=== PATIENT | male | born 1975 | race Caucasian/White ===

== ENCOUNTER 2023-11-18 00:37 | Inpatient (IN) | payer MEDICAID ==
[2023-11-18] MEDS: Sodium Chloride 0.9% 10 ML Syringe FLUSH PRN (00:45)
[2023-11-18] MEDS: MVI, Adult with Vitamin K 10 ML, Folic Acid 1 MG, Thiamine 100 MG in Lactated Ringers 1... IV ONE (00:45)
[2023-11-18 00:55] LABS: BASOPHILS PERCENT AUTO 0.7 % (0.0-1.0); EOSINOPHILS PERCENT AUTO 0.7 % (1.0-3.0); HEMATOCRIT 36.5 % (40.0-54.0); LYMPHOCYTES PERCENT AUTO 8.1 % (20.5-50.1); MEAN CORPUSCULAR HEMOGLOBIN 35.3 pg (27.0-34.0); MEAN CORPUSCULAR HGB CONC 32.9 g/dL (33.0-35.0); MEAN CORPUSCULAR VOLUME 107.4 fL (80-100); MONOCYTES PERCENT AUTO 17.6 % (2-8); NEUTROPHILS PERCENT AUTO 72.9 % (42.2-75.2); PLATELET COUNT,PLT 183 10^3/uL (150-450); WHITE BLOOD CELL COUNT,WBC 7.1 10^3/uL (5.0-10.0)
[2023-11-18] MEDS: LORazepam 2 MG/ML SDV IVPUSH ONE (00:55)
[2023-11-18 01:18] LABS: ALANINE AMINOTRANSFERASE,ALT 96 U/L (16-63); ALBUMIN 3.1 g/dL (3.4-5.0); ALKALINE PHOSPHATASE 72 U/L (46-116); ANION GAP 17.2 mEq/L (7-13); ASPARTATE AMNIOTRANSFERASE,AST 84 U/L (15-37); BILIRUBIN TOTAL 1.8 mg/dL (0.2-1.0); BLOOD UREA NITROGEN,BUN 21 mg/dL (7-18); BUN/CREATININE RATIO 11.3 (No establ ref range); C-REACTIVE PROTEIN 4.74 ng/dL (<=0.50); CALCIUM 8.2 mg/dL (8.5-10.1); CARBON DIOXIDE,CO2 25 mmol/L (21-32); CHLORIDE,CL 108 mmol/L (98-107); CREATININE 1.86 mg/dL (0.70-1.30); EST CRCL DRUG DOSING (CG) 56.08 mL/min; GLUCOSE RANDOM 120 mg/dL (70-99); MAGNESIUM 1.8 mg/dL (1.8-2.4); POTASSIUM,K 3.2 mmol/L (3.5-5.1); PROTEIN TOTAL,TP 6.5 g/dL (6.4-8.2); SODIUM,NA 147 mmol/L (136-145)
[2023-11-18 01:19] LABS: A/G RATIO 0.91; ESTIMATED GFR 45 mL/min (>=60); ETHANOL BLOOD MEDICAL < 3 mg/dL (0)
[2023-11-18 01:26] LABS: INR 1.1 (0.9-1.2); PTT,PARTIAL THROMBOPLSTIN TIME 22.4 SEC (22.0-34.0)
[2023-11-18 01:56] LABS: APPEARANCE,URINE CLEAR (CLEAR); BILIRUBIN,URINE LARGE (NEGATIVE); COLOR,URINE AMBER (YELLOW); GLUCOSE,URINE NEGATIVE (NEGATIVE); KETONES,URINE 15 (NEGATIVE); LEUKOCYTE ESTERASE,URINE NEGATIVE (NEGATIVE); NITRITE,URINE POSITIVE (NEGATIVE); OCCULT BLOOD,URINE MODERATE (NEGATIVE); PH,URINE 5.5 (5.0-9.0); PROTEIN,URINE 100 (NEGATIVE); UROBILINOGEN,URINE >=8.0 mg/dL (0.2-1.0)
[2023-11-18 02:06] LABS: AMPHETAMINES,URINE NEGATIVE (NEGATIVE); BARBITURATES,URINE NEGATIVE (NEGATIVE); BENZODIAZEPINE,URINE POSITIVE (NEGATIVE); MDMA (ECSTASY), URINE NEGATIVE (NEGATIVE); METHADONE,URINE NEGATIVE (NEGATIVE); METHAMPHETAMINES,URINE NEGATIVE (NEGATIVE); OPIATES,URINE NEGATIVE (NEGATIVE); OXYCODONE,URINE NEGATIVE (NEGATIVE); PHENCYCLIDINE,URINE NEGATIVE (NEGATIVE); TCA,URINE NEGATIVE (NEGATIVE)
[2023-11-18 02:24] LABS: BACTERIA,URINE FEW /HPF (0-FEW/HPF); EPITHELIAL CELLS,URINE FEW /HPF (NOT SEEN); MUCUS,URINE FEW /LPF (NOT SEEN); WBC,URINE 0-5 /HPF (0-5/HPF)
[2023-11-18 02:25] LABS: AMORPHOUS SEDIMENT,URINE FEW /HPF (NOT SEEN); HYALINE CASTS,URINE FEW
[2023-11-18] MEDS: Diphtheria,Pertussis(Acell),Tetanus Vaccine 0.5 ML Syringe IM ONE (02:49)
[2023-11-18] MEDS: Bacitracin Oint 1 GM U/D Packet TOP ONE (02:51)
[2023-11-18] MEDS: Lactated Ringers 1,000 ML IV SCH (03:13)
[2023-11-18] MEDS: cefTRIAXone 2 GM Vial IVPUSH ONE (03:16)
[2023-11-18] MEDS: Potassium Chloride 20 MEQ in Premix Bag 1 BAG IV ONE (03:16)
[2023-11-18] MEDS: Flumazenil 0.1 MG/ML 5 ML MDV IVPUSH ONE ×2 (05:32→06:04)
[2023-11-18] MEDS: Naloxone 2 MG/2 ML Syringe IVPUSH PRN (07:42)
[2023-11-18] MEDS: Sodium Chloride 0.9% 1,000 ML IV SCH ×2 (08:01→11:25)
[2023-11-18 08:14] LABS: BASE EXCESS ARTERIAL -1 mmol/L ((-2)-(+3)); BICARBONATE,ARTERIAL 27.2 mmol/L (22-26); O2 DELIVERY DEVICE OM; O2 SATURATION ARTERIAL 95 % (95-100); PH,ARTERIAL 7.23 (7.35-7.45); PO2 ARTERIAL 87 mmHg (70-100)
[2023-11-18 08:15] LABS: ALLEN TEST POSITIVE; PCO2 ARTERIAL 68 mmHg (35-45)
[2023-11-18 08:58] LABS: CORONAVIRUS COVID-19 NAA NEGATIVE (NEGATIVE); INFLUENZA A NAA NEGATIVE (NEGATIVE); INFLUENZA B NAA NEGATIVE (NEGATIVE); RESPIRATORY SYNCYTIAL VIR NAA NEGATIVE (NEGATIVE)
[2023-11-18] MEDS ORDERED: Metoprolol Tartrate 5 MG/5 ML SDV IVPUSH PRN (10:18)
[2023-11-18] MEDS ORDERED: Naloxone 2 MG/2 ML Syringe IVPUSH PRN (10:19)
[2023-11-18] MEDS ORDERED: Polyethylene Glycol 3350 Powder 17 GM Packet PO PRN (10:19)
[2023-11-18] MEDS ORDERED: Ondansetron 4 MG/2 ML SDV IVPUSH PRN (10:19)
[2023-11-18] MEDS ORDERED: Albuterol/Ipratropium 3.0-0.5 MG/3 ML Neb Soln NEB PRN (10:19)
[2023-11-18] MEDS ORDERED: Sennosides/Docusate Sodium 50-8.6 MG Tab PO PRN (10:19)
[2023-11-18] MEDS ORDERED: Magnesium Hydroxide 400 MG/5 ML Susp 30 ML Cup PO PRN (10:19)
[2023-11-18] MEDS ORDERED: Acetaminophen/oxyCODONE 325-5 MG Tab PO PRN (10:19)
[2023-11-18] MEDS ORDERED: LORazepam 2 MG/ML SDV IV PRN (10:35)
[2023-11-18] MEDS ORDERED: cloNIDine 0.1 MG Tab PO PRN (10:36)
[2023-11-18] MEDS ORDERED: Haloperidol Lactate 5 MG/ML SDV IM PRN (10:36)
[2023-11-18 11:04] LABS: HEMOGLOBIN A1C 5.3 % (<5.7)
[2023-11-18 17:40] LABS: ALBUMIN 2.6 g/dL (3.4-5.0); ANION GAP 12.8 mEq/L (7-13); BILIRUBIN TOTAL 1.3 mg/dL (0.2-1.0); BUN/CREATININE RATIO 14.6 (No establ ref range); CALCIUM 7.6 mg/dL (8.5-10.1); CREATININE 1.03 mg/dL (0.70-1.30); EST CRCL DRUG DOSING (CG) 101.28 mL/min; POTASSIUM,K 3.8 mmol/L (3.5-5.1); PROTEIN TOTAL,TP 5.9 g/dL (6.4-8.2)
[2023-11-18 17:44] LABS: A/G RATIO 0.79
[2023-11-18] MEDS: Modafinil 100 MG Tab PO ONE (18:20)
[2023-11-18] MEDS: Ondansetron 4 MG/2 ML SDV IVPUSH ONE (18:20)
[2023-11-18] MEDS: Pantoprazole 40 MG Vial IVPUSH ONE (18:20)
[2023-11-18] MEDS: Allopurinol 100 MG Tab PO SCH (20:53)
[2023-11-18] MEDS: HYDROmorphone 0.5 MG/0.5 ML Syringe IVPUSH PRN (20:57)
[2023-11-19] MEDS: Pantoprazole 40 MG Tab.CR PO SCH (03:54)
[2023-11-19] MEDS ORDERED: Pantoprazole 40 MG Tab.CR PO SCH (06:00)
[2023-11-19 06:50] LABS: BASOPHILS PERCENT AUTO 0.6 % (0.0-1.0); EOSINOPHILS PERCENT AUTO 2.3 % (1.0-3.0); HEMATOCRIT 31.2 % (40.0-54.0); LYMPHOCYTES PERCENT AUTO 13.3 % (20.5-50.1); MEAN CORPUSCULAR HEMOGLOBIN 35.6 pg (27.0-34.0); MEAN CORPUSCULAR HGB CONC 32.1 g/dL (33.0-35.0); MONOCYTES PERCENT AUTO 18.4 % (2-8); NEUTROPHILS PERCENT AUTO 65.4 % (42.2-75.2); PLATELET COUNT,PLT 159 10^3/uL (150-450); RED BLOOD CELL COUNT 2.81 10^6/uL (4.6-6.2); WHITE BLOOD CELL COUNT,WBC 4.7 10^3/uL (5.0-10.0)
[2023-11-19 06:58] LABS: ALBUMIN 2.4 g/dL (3.4-5.0); ANION GAP 12.6 mEq/L (7-13); BILIRUBIN TOTAL 1.5 mg/dL (0.2-1.0); BUN/CREATININE RATIO 16.5 (No establ ref range); CALCIUM 7.4 mg/dL (8.5-10.1); CREATININE 0.91 mg/dL (0.70-1.30); EST CRCL DRUG DOSING (CG) 114.63 mL/min; MAGNESIUM 1.9 mg/dL (1.8-2.4); POTASSIUM,K 3.6 mmol/L (3.5-5.1); PROTEIN TOTAL,TP 5.6 g/dL (6.4-8.2)
[2023-11-19 06:59] LABS: A/G RATIO 0.75
[2023-11-19] MEDS: Loratadine 10 MG Tab PO SCH (08:17)
[2023-11-19] MEDS: Modafinil 100 MG Tab PO SCH ×2 (08:17→12:04)
[2023-11-19] MEDS: Saccharomyces Boulardii (Probiotic) 250 MG Cap PO SCH (08:17)
[2023-11-19] MEDS: Levothyroxine 25 MCG Tab PO SCH (08:17)
[2023-11-19] MEDS: Folic Acid 1 MG Tab PO SCH (08:17)
[2023-11-19] MEDS: amLODIPine 5 MG Tab PO SCH (08:18)
[2023-11-19] MEDS: Multivitamin Tab PO SCH (08:18)
[2023-11-19] MEDS: Thiamine 100 MG Tab PO SCH (08:18)
[2023-11-19] MEDS: Citalopram 20 MG Tab PO SCH (08:18)
[2023-11-19] MEDS: cefTRIAXone 2 GM Vial IVPUSH SCH (08:21)
[2023-11-19] MEDS ORDERED: Folic Acid 1 MG Tab PO SCH (09:00)
[2023-11-19] MEDS: Acetaminophen/Butalbital/Caffeine 325-50-40 MG Tab PO PRN (09:48)
[2023-11-19] MEDS: Furosemide 40 MG/4 ML VIAL IVPUSH ONE (15:52)
[2023-11-20] MEDS ORDERED: Loperamide 2 MG Cap PO PRN (08:54)
[2023-11-20] MEDS ORDERED: Simethicone 80 MG Tab.Chew PO PRN (08:56)
[2023-11-21] MEDS: hydrALAZINE 20 MG/ML SDV IVPUSH PRN
[2023-11-22 06:21] LABS: BASOPHILS PERCENT AUTO 1.3 % (0.0-1.0); EOSINOPHILS PERCENT AUTO 2.4 % (1.0-3.0); HEMATOCRIT 32.8 % (40.0-54.0); HEMOGLOBIN 10.8 g/dL (14.0-18.0); LYMPHOCYTES PERCENT AUTO 21.8 % (20.5-50.1); MEAN CORPUSCULAR HGB CONC 32.9 g/dL (33.0-35.0); MEAN CORPUSCULAR VOLUME 106.1 fL (80-100); MONOCYTES PERCENT AUTO 14.9 % (2-8); NEUTROPHILS PERCENT AUTO 59.6 % (42.2-75.2); PLATELET COUNT,PLT 246 10^3/uL (150-450); RED BLOOD CELL COUNT 3.09 10^6/uL (4.6-6.2); WHITE BLOOD CELL COUNT,WBC 4.5 10^3/uL (5.0-10.0)
[2023-11-22 06:37] LABS: ALBUMIN 2.3 g/dL (3.4-5.0); ANION GAP 11.6 mEq/L (7-13); BILIRUBIN TOTAL 0.7 mg/dL (0.2-1.0); BUN/CREATININE RATIO 10.5 (No establ ref range); CALCIUM 7.9 mg/dL (8.5-10.1); CREATININE 0.95 mg/dL (0.70-1.30); EST CRCL DRUG DOSING (CG) 109.8 mL/min; MAGNESIUM 1.5 mg/dL (1.8-2.4); POTASSIUM,K 3.6 mmol/L (3.5-5.1)
[2023-11-22 06:38] LABS: A/G RATIO 0.62
[2023-11-22] MEDS: Magnesium Sulfate/Water 2 GM in Premix Bag 1 BAG IV ONE (09:26)
[2023-11-22] MEDS: Lisinopril 20 MG Tab PO ONE (11:56)
[2023-11-22] MEDS: Lisinopril 20 MG Tab PO SCH (20:05)
[2023-11-23] MEDS: Acetaminophen 325 MG Tab PO PRN (09:51)
[2023-11-23] MEDS: Polyethylene Glycol 3350 Powder 17 GM Packet PO SCH (12:00)
== END 2023-11-23 14:00 | disposition home or self-care (01) | DRG 189 ==
LOC: DL.ED 00:37 → DL.MS 09:24 → DL.ED 09:40 → OBSVTOIN 11-21 10:44
PROVIDERS: ADMIT Internal Medicine; ATTEND Internal Medicine
PROC: 5A09457 Assistance with Respiratory Ventilation, 24-96 Consecutive Hours, Continuous Positive Airway Pressure (ICD-10-PCS; principal; 2023-11-21)
PROC: 4A033R1 Measurement of Arterial Saturation, Peripheral, Percutaneous Approach (ICD-10-PCS; 2023-11-21)
PROC: 0HQ1XZZ Repair Face Skin, External Approach (ICD-10-PCS; 2023-11-21)
DX: J96.02 Acute respiratory failure with hypercapnia (principal); G92.8 Other toxic encephalopathy; S52.614A Nondisplaced fracture of right ulna styloid process, initial encounter for closed fracture; N39.0 Urinary tract infection, site not specified; L03.116 Cellulitis of left lower limb; Z68.41 Body mass index [BMI] 40.0-44.9, adult; Z59.00 Homelessness unspecified; E66.2 Morbid (severe) obesity with alveolar hypoventilation; E87.0 Hyperosmolality and hypernatremia; N17.9 Acute kidney failure, unspecified; K21.9 Gastro-esophageal reflux disease without esophagitis; M19.90 Unspecified osteoarthritis, unspecified site; M10.9 Gout, unspecified; F41.9 Anxiety disorder, unspecified; E03.9 Hypothyroidism, unspecified; E87.6 Hypokalemia; N18.9 Chronic kidney disease, unspecified; I12.9 Hypertensive chronic kidney disease with stage 1 through stage 4 chronic kidney disease, or unspecified chronic kidney disease; S01.91XA Laceration without foreign body of unspecified part of head, initial encounter; T50.905A Adverse effect of unspecified drugs, medicaments and biological substances, initial encounter; W19.XXXA Unspecified fall, initial encounter; D50.9 Iron deficiency anemia, unspecified; E87.8 Other disorders of electrolyte and fluid balance, not elsewhere classified; R73.9 Hyperglycemia, unspecified; D63.1 Anemia in chronic kidney disease; E80.6 Other disorders of bilirubin metabolism; R74.01 Elevation of levels of liver transaminase levels; E88.09 Other disorders of plasma-protein metabolism, not elsewhere classified; M79.89 Other specified soft tissue disorders; R19.7 Diarrhea, unspecified; Z88.0 Allergy status to penicillin; Z79.899 Other long term (current) drug therapy; Z98.890 Other specified postprocedural states; K70.10 Alcoholic hepatitis without ascites
CPT/HCPCS: 0241U; 12002; 36415; 36600; 51702; 70450; 72125; 73100-RT; 74018; 80053; 80305-QW; 80307; 81001; 82140; 82803; 82947; 83036; 83605; 83735; 84484; 85025; 85610; 85730; 86140; 87086; 90471; 90715; 93005; 93010; 94660; 94760; 96361; 96365; 96366; 96367; 96375; 96376; 97110-GP; 97161-GP; 97165-GO; 97530-GO; 97530-GP; 99222; 99231; 99232; 99238; 99284; 99285-25; A9270-GY; C1758; C9113; G0378; J0360; J0696; J1170; J1940; J2060; J2310; J2405; J3411; J3475; J3480; J3490; J7030; J7120